=== PATIENT | female | born 1970 | race Caucasian/White ===

== ENCOUNTER 2019-03-03 12:17 | Emergency (ER) | payer SELFPAY ==
[~2019-03-03] VITALS: Ht 162.6 cm; Wt 81.2 kg
[~2019-03-03 12:17] MED LIST: THYROID
--- NOTE | 2019-03-03 12:38 | NUR ---
PATIENT WAS SEEN BY . URINE SENT TO LAB...
[2019-03-03 12:52] LABS: *BILIRUBIN,URIN NEGATIVE (NEGATIVE); *BLOOD, URINE NEGATIVE (NEGATIVE); *CLARITY,URINE CLEAR (CLEAR); *COLOR,URINE YELLOW (YELLOW); *KETONES,URINE NEGATIVE (NEGATIVE); *UROBILINOGEN,URINE 0.2 E.U./dl (NORMAL); LEUKOCYTE ESTERASE ,URINE NEGATIVE (NEGATIVE); NITRITE, URINE NEGATIVE (NEGATIVE); PH,URINE 5.5 (5.0-8.0); UGLUCOSE NEGATIVE (NEGATIVE)
[2019-03-03 12:58] LABS: *URINE HCG, QUAL NEGATIVE (NEGATIVE)
[2019-03-03] MEDS ORDERED: ONDANSETRON 4 MG/2 ML VIAL ONE (13:25)
[2019-03-03] MEDS: ONDANSETRON 4 MG/2 ML VIAL IV ONE (13:41)
[2019-03-03] MEDS ORDERED: IOHEXOL 300MG/ML 100 ML INFUS..BTL ONE (13:48)
[2019-03-03] MEDS ORDERED: IV NORMAL SALINE 250 ML IV ONE (13:48)
[2019-03-03] MEDS ORDERED: SWABABLE VALVE TRANSFER SET EA MC ONE (13:48)
[2019-03-03 13:56] LABS: BASOPHILS # (AUTO) 0.1 K/uL (0.0-8.0); BASOPHILS % (AUTO) 1.3 % (0.0-2.0); EOSINOPHILS # (AUTO) 0.1 K/uL (0.0-0.7); EOSINOPHILS % (AUTO) 2.5 % (0.0-7.0); HEMATOCRIT 38.2 % (31.2-41.9); HEMOGLOBIN 13.3 g/dL (10.9-14.3); LYMPHOCYTES # (AUTO) 1.7 K/uL (20.0-40.0); LYMPHOCYTES % (AUTO) 35.4 % (20.5-51.5); MEAN CORPUSCULAR HEMOGLOBIN 33.2 uug (24.7-32.8); MEAN CORPUSCULAR HGB CONC 35 g/dL (32.3-35.6); MEAN CORPUSCULAR VOLUME 95.2 fL (75.5-95.3); MONOCYTES # (AUTO) 0.4 K/uL (2.0-10.0); MONOCYTES % (AUTO) 8.1 % (0.0-11.0); NEUTROPHILS # (AUTO) 2.5 K/uL (1.8-8.9); NEUTROPHILS % (AUTO) 52.7 % (38.5-71.5); PLATELET COUNT (AUTO) 390 K/uL (179-408); RED BLOOD CELL COUNT(AUTO) 4.01 MIL/uL (3.63-4.92); WHITE BLOOD COUNT (AUTO) 4.7 K/uL (3.8-11.8)
[2019-03-03] MEDS: HYDROCODONE/APAP 5-325MG TABLET PO ONE (14:12)
--- NOTE | 2019-03-03 14:12 | NUR ---
PATIENT STATES SHE HAS BACK PAIN (CHRONICALLY) AND ASKS FOR PAIN. MEDICINE. STATES SHE IS NOT DRIVING TODAY. DR MA NOTIFIED. [facility] GIV[facility] ORDERED.
[2019-03-03] MEDS ORDERED: HYDROCODONE/APAP 5-325MG TABLET ONE (14:13)
[2019-03-03 14:30] LABS: BILIRUBIN,DIRECT 0.1 mg/dL (0.0-0.2); BILIRUBIN,TOTAL 0.3 mg/dL (0.2-1.0); CREATININE 0.7 mg/dL (0.6-1.3); POTASSIUM 4.4 mmol/L (3.5-5.1); TOTAL PROTEIN, SERUM 7.5 g/dL (6.4-8.2)
--- NOTE | 2019-03-03 15:12 | NUR ---
PATIENT STATES NAUSE AND PAIN HAVE DIMINISHED. DC, and follow up instructions given and explained to patient who states she understands all instructions
--- NOTE | 2019-03-03 15:12 | NUR ---
IV removed. Catheter intact and site benign. Pressure and 4x4 gauze applied to site. No bleeding noted.
[2019-03-03 15:15] VITALS: BP 133/79
== END 2019-03-03 15:16 | disposition home or self-care (01) ==
LOC: ER 12:17
DX: M54.5 Low back pain (principal); R11.0 Nausea; E03.9 Hypothyroidism, unspecified; F17.200 Nicotine dependence, unspecified, uncomplicated
CPT/HCPCS: 36415; 74177; 80048; 80076; 81001; 83690; 84703; 85025; 87086; 96374; 99284; J2405; Q9967; A4663; J7050